=== PATIENT | female | born 1970 | race Caucasian/White ===

== ENCOUNTER 2018-09-07 00:34 | Outpatient (CLI) | payer BC, SELFPAY ==
--- NOTE | 2018-09-07 09:50 | DI.MAMMO_ITS ---
SYMPTOMS/DIAGNOSIS: SCREENING, Z12.31, PREVENTATIVE CARE, Z00.00 MAMMOGRAM: Mammograms were interpreted according to the usual protocol including computer analysis with CAD system, tomosynthesis and C view imaging. Comparison is made with exams from 2010 through 2016. Bilateral breast implants are again noted which appear intact. Implant displaced views were performed in addition to the routine views. The breasts are composed of heterogeneously dense fibroglandular tissue, breast density Category C. No suspicious masses or suspicious microcalcifications are seen. There has been no significant change. IMPRESSION: Category I C, negative mammogram. Yearly screening mammography is recommended. [facility] ASSESSMENT OF FINDINGS: Negative. Category 1. Patient will receive a letter notifying them of these results. Bi-RADS category C. The breasts are heterogeneously dense, which may obscure small masses.
== END 2018-09-07 00:54 ==
PROVIDERS: PCP Family Medicine; Visit Provider Family Medicine
DX: Z00.00 Encounter for general adult medical examination without abnormal findings (principal); Z12.31 Encounter for screening mammogram for malignant neoplasm of breast
CPT/HCPCS: 77063; 77067

== ENCOUNTER 2019-04-27 01:33 | Outpatient (CLI) | payer BC, SELFPAY ==
--- NOTE | 2019-04-27 09:10 | DI.COMBO_ITS ---
SYMPTOMS/DIAGNOSIS: DIAGNOSTIC, LT BREAST LUMP LEFT MAMMOGRAM AND LEFT BREAST ULTRASOUND: Mammograms were interpreted according to the usual protocol including computer analysis with CAD system, tomosynthesis and C view imaging. Comparison with prior examinations. Breast density C. No suspicious masses or microcalcifications are seen sonographically. A left breast implant is again seen and is unchanged. In the left breast in the area of palpable abnormality there is a 1.3 x 1.4 x 1 cm cyst. No internal blood flow is seen. There is debris seen within the dependent portion of the cyst. This may represent a prior infection or hemorrhage. No findings to suggest malignancy are seen. IMPRESSION: 1. 1.4 cm cyst in the left breast at 12:00 o'clock which corresponds to the palpable abnormality. Internal debris is noted. This may represent hemorrhagic or infection. No findings mammographically or sonographically at this time are seen to suggest malignancy. Category 2. The findings were discussed with the patient on the date of the examination. [facility] ASSESSMENT OF FINDINGS: Negative with benign findings. Category 2. Patient will receive a letter notifying them of these results. Bi-RADS category C. The breasts are heterogeneously dense, which may obscure small masses.
== END 2019-04-27 01:53 ==
PROVIDERS: PCP Family Medicine; Visit Provider Physician Assistant Medical
DX: N63.20 Unspecified lump in the left breast, unspecified quadrant (principal); N60.02 Solitary cyst of left breast
CPT/HCPCS: 76642; 77061; 77065; G0279

== ENCOUNTER 2019-11-29 15:31 | Outpatient (REF) | payer BC, SELFPAY ==
[2019-11-29 21:06] LABS: Abs Immature Grans 0.01 k/cumm (0.0-0.09); Absolute Basophil Count 0.04 k/cumm (0.0-0.2); Absolute Eosinophil Count 0.36 k/cumm (0.0-0.7); Absolute Lymphocyte Count 2.76 k/cumm (1.2-3.4); Absolute Monocyte Count 0.42 k/cumm (0.11-0.7); Basophils % 0.5; Eosinophils % 4.5; HCT 40.2 % (36.0-46.0); HGB 13.1 g/dL (12.0-15.5); Immature Grans % 0.1 %; Lymphocytes % 34.5; Mean Corp. HGB Concentration 32.6 g/dL (32.0-36.0); Mean Corpuscular Hemoglobin 31.8 pg (27.0-33.0); Mean Corpuscular Volume 97.6 fL (80-95); Mean Platelet Volume 8.9 fL (8.0-11.0); Monocytes % 5.3; Neutrophils % 55.1; Platelet Count 338 x1000/uL (130-400); RBC 4.12 m/cumm (4.00-5.20); RBC Distribution Width 13.8 % (11.7-14.6); White Blood Cell Count 7.99 k/cumm (4.4-10.8)
[2019-11-29 21:28] LABS: ALT 22 U/L (14-59); AST 18 U/L (15-37); Albumin 3.7 g/dL (3.4-5.0); Alkaline Phosphatase 67 U/L (46-116); Anion Gap 7.4 mmol/L (3-11); BUN 13 mg/dL (7-18); Bilirubin, Total 0.2 mg/dL (0.2-1.0); C-Reactive Protein 0.11 mg/dL (0.0-0.3); CO2 29.6 mmol/L (21.0-32.0); CREATININE 0.64 mg/dL (0.55-1.02); Calcium 8.6 mg/dL (8.5-10.1); Chloride 105 mmol/L (98-107); Glucose 78 mg/dL (74-106); Magnesium 1.6 mg/dL (1.8-2.4); Potassium 4.3 mmol/L (3.5-5.1); Sodium 142 mmol/L (136-145); TSH (W/Ref FT4) 1.09 uIU/mL (0.36-3.74); Total Protein 6.9 g/dL (6.4-8.2)
[2019-11-29 21:59] LABS: ESR 10 mm/hr (0-20)
[2019-12-03 10:46] LABS: HIV-1/2 Ag & Ab Screen Negative (Negative)
[2019-12-03 11:37] LABS: Hepatitis C Ab w Rflx HCV PCR Negative (Negative)
== END 2019-11-29 15:51 ==
LOC: NCHCN 15:31
PROVIDERS: PCP Family Medicine; Visit Provider Family Medicine
DX: Z00.00 Encounter for general adult medical examination without abnormal findings (principal); R53.83 Other fatigue; R51 Headache; R19.7 Diarrhea, unspecified; R61 Generalized hyperhidrosis; Z11.4 Encounter for screening for human immunodeficiency virus [HIV]; Z11.59 Encounter for screening for other viral diseases
CPT/HCPCS: 80053; 85652; 86803; 87389; 83735; 84443; 85025; 86140

== ENCOUNTER 2020-05-19 07:19 | Outpatient (CLI) | payer BC, SELFPAY ==
--- NOTE | 2020-05-19 08:00 | DI.MAMMO_ITS ---
EXAM: MG MAMMO SCREENING CLINICAL HISTORY: SCREENING, [facility],Z00.00 TECHNIQUE: Bilateral full field digital CC and MLO mammographic images were obtained with 3D tomosyn thesis and utilizing computer aided detection (CAD). COMPARISON: Available for comparison. FINDINGS: Masses/Architectural Distortion: None seen. Stable bilateral breast implants. Microcalcifications: No suspicious pleomorphic-type are seen. Skin Thickening/Nipple Retraction: None. IMPRESSION: 1. No significant interval change with no specific features of malignancy noted. 2. Unless there is more urgent need, screening mammography is recommended, as per [employer] [place] guidelines. BI-RADS Category 1 - Negative Breast Density - Category B - Scattered areas of fibroglandular density A negative radiographic report should not delay biopsy if a dominant or clinically suspicious mass is present. Up to ten percent of cancers are not identified on mammography. A negative report may reinforce clinical impression. Adenosis and dense breasts may obscure an underlying neoplasm. False positive reports average 6 to 10%. Patient will receive a letter notifying them of these results.
== END 2020-05-19 07:39 ==
PROVIDERS: PCP Family Medicine; Visit Provider Family Medicine
DX: Z12.31 Encounter for screening mammogram for malignant neoplasm of breast (principal); Z00.00 Encounter for general adult medical examination without abnormal findings; Z98.82 Breast implant status
CPT/HCPCS: 77063; 77067

== ENCOUNTER 2021-01-23 13:26 | Outpatient (CLI) | payer OTHER, SELFPAY ==
--- NOTE | 2021-01-23 | DI.RAD_ITS ---
EXAM: XR THORACIC SPINE COMPLETE CLINICAL HISTORY: THORACIC BACK PAIN, M54.9, FELL. TECHNIQUE: 2D digital imaging was performed. COMPARISON: No exams were available for comparison FINDINGS: BONES: There is no fracture or destructive lesion. The vertebral bodies and posterior elements are un remarkable. DISKS:There is a mild dextroscoliosis. Interverebral disc spaces are maintained. There are minimal endplate osteophytes in the lower thoracic region. SOFT TISSUE: Visualized lungs are clear. IMPRESSION: Mild scoliosis and mild degenerative changes. DATA REPOSITORY: RADIATION DOSE DELIVERED:
--- NOTE | 2021-01-23 | DI.RAD_ITS ---
EXAM: XR RIBS LT PA CHEST 3V CLINICAL HISTORY: THORACIC PAIN, FELL, M54.9. COMPARISON: CR CHEST 2 VIEWS PA,LAT from 01/10/2017 FINDINGS: LUNGS: Clear. No pneumothorax is seen. No infiltrate or effusion. HEART: Normal in size. BONES: No displaced rib fracture is seen. No bony destructive lesion is seen. The spine is grossly i ntact. IMPRESSION: Unremarkable chest and left ribs.
--- NOTE | 2021-01-23 | DI.RAD_ITS ---
EXAM: XR LUMBAR SPINE COMPLETE CLINICAL HISTORY: BACK PAIN, M54.5, FELL. TECHNIQUE: 2D digital imaging was performed. COMPARISON: CT ABD PELVIS WITH CONTRAST from 06/26/2014 CR ABD FLAT UPRIGHT PA CHEST from 06/26/2014 FINDINGS: Is no evidence of fracture, spondylolysis or spondylolisthesis. There is a [id number] levoscol iosis. There is mild narrowing of the L4-5 disc space and is severe narrowing of the L5-S1 disc spac e. Is calcification of the ileo transverse ligaments. The SI joints are unremarkable. The sacrum a ppears intact. IMPRESSION: Degenerative changes of the lower lumbar spine. No acute abnormality. DATA REPOSITORY: RADIATION DOSE DELIVERED:
== END 2021-01-23 13:46 ==
PROVIDERS: PCP Family Medicine; Visit Provider Physician Assistant
DX: M41.84 Other forms of scoliosis, thoracic region (principal); M47.814 Spondylosis without myelopathy or radiculopathy, thoracic region; M54.6 Pain in thoracic spine; M47.816 Spondylosis without myelopathy or radiculopathy, lumbar region
CPT/HCPCS: 71101; 72072; 72110

== ENCOUNTER 2021-07-01 02:22 | Outpatient (CLI) | payer OTHER, SELFPAY ==
--- NOTE | 2021-07-01 | DI.MAMMO_ITS ---
Exam(s) MG MAMMO SCREENING 60 MIN DUR EXAM: MG MAMMO SCREENING 60 MIN DUR CLINICAL HISTORY: SCREENING, IMPLANTS, [facility],Z00.00. TECHNIQUE: Bilateral full field digital CC and MLO mammographic images were obtained with 3D tomosyn thesis and utilizing computer aided detection (CAD). COMPARISON: Prior mammograms dating back to 2013, the most recent being April 2020.. This patient has retropectoral silicone implants. Both conventional implant displacement views were performed. FINDINGS: The fibroglandular tissue pattern is again noted be moderately dense, this decreasing the sensitivity of the mammogram for finding in underlying lesions. There are no CAD designations. In the posterior aspect of the right breast there is a 4 x 3 millimeter asymmetric density located ap proximately. 4.5 cm in from the nipple on the CC implant displacement view. Additional imaging rec ommended. In the opposite-left breast on the 3D MLO view there is round 2-3 millimeter nodule located 2 cm in f rom the nipple,. Ultrasound recommended There is no significant architectural distortion nor skin thickening-retraction. No malignant-appearing microcalcifications in either breast IMPRESSION: Dense bilateral fibroglandular tissue. Small nodules noted bilaterally. Bilateral breast ultrasound recommended. BI-RADS Category 0 - Assessment Incomplete: Need additional imaging evaluation Breast Density - Category C - Heterogeneously dense Breast density Category C or D implies that the patient has dense breast tissue. Dense breast tissue can make it harder to find cancer on a mammogram. Dense breast tissue is also associated with an incr eased risk of breast cancer. This information about the result of the mammogram report was provided to the patient to raise their awareness. Use this report when you speak with the patient about their risks for breast cancer, which includes their family history. At that time, you may recommend additional screening tests (Ultrasoun d or MRI) as these tests may add significant information. A negative radiographic report should not delay biopsy if a dominant or clinically suspicious mass is present. Up to ten percent of cancers are not identified on mammography. A negative report may reinforce clinical impression. Adenosis and dense breasts may obscure an underlying neoplasm. False positive reports average 6 to 10%. Patient will receive a letter notifying them of these results.
== END 2021-07-01 02:42 ==
PROVIDERS: PCP Family Medicine; Visit Provider Family Medicine
DX: Z00.00 Encounter for general adult medical examination without abnormal findings (principal); Z12.31 Encounter for screening mammogram for malignant neoplasm of breast; R92.8 Other abnormal and inconclusive findings on diagnostic imaging of breast; Z98.82 Breast implant status
CPT/HCPCS: 77063; 77067

== ENCOUNTER 2022-01-19 14:39 | Outpatient (REF) | payer OTHER, SELFPAY ==
[2022-01-19 14:51] LABS: HGB 12.3 g/dL (11.2-15.7); MCH 31.3 pg (27.0-33.0); MCHC 31.5 % (32.0-36.0); MCV 99.2 fL (80-95); MPV 9.3 fL (8.0-11.0); Platelet Count 267 10^3/uL (130-400); RBC 3.93 10^6/uL (3.93-5.22); RDW 13.4 % (11.7-14.6); RDW-SD 49.9 fL; WBC 8.33 10^3/uL (4.4-10.8)
[2022-01-19 15:20] LABS: ALT 39 U/L (14-59); AST 23 U/L (15-37); Albumin 3.6 g/dL (3.4-5.0); Alkaline Phosphatase 82 U/L (46-116); Anion Gap 7.2 mmol/L (3-11); BUN 16 mg/dL (7-18); Bilirubin, Total 0.2 mg/dL (0.2-1.0); CO2 27.8 mmol/L (21.0-32.0); CREATININE 0.7 mg/dL (0.55-1.02); Calcium 8.6 mg/dL (8.5-10.1); Calculated LDL 118 mg/dL (<100); Chloride 104 mmol/L (98-107); Cholesterol 182 mg/dL (<200); Glucose 83 mg/dL (74-106); HDL Cholesterol 39 mg/dL (40-60); Potassium 4.6 mmol/L (3.5-5.1); Sodium 139 mmol/L (136-145); TSH (W/Ref FT4) 0.69 uIU/mL (0.36-3.74); Total Protein 6.6 g/dL (6.4-8.2); Triglyceride 129 mg/dL (<150)
== END 2022-01-19 14:40 | disposition home or self-care (01) ==
LOC: NCHCN 14:39
PROVIDERS: PCP Family Medicine; Visit Provider Family Medicine
DX: E83.42 Hypomagnesemia (principal); R19.7 Diarrhea, unspecified; K58.9 Irritable bowel syndrome, unspecified; Z00.00 Encounter for general adult medical examination without abnormal findings
CPT/HCPCS: 80053; 80061; 85027; 84443

== ENCOUNTER 2023-01-21 16:27 | Outpatient (REF) | payer OTHER, SELFPAY ==
[2023-01-21 15:18] LABS: Anion Gap 4.9 mmol/L (3-11); BUN 13 mg/dL (7-18); CO2 29.1 mmol/L (21.0-32.0); CREATININE 0.8 mg/dL (0.55-1.02); Calcium 8.9 mg/dL (8.5-10.1); Chloride 104 mmol/L (98-107); Estimated GFR 89.71 (mL/min/1.73m2); Glucose 100 mg/dL (74-106); Potassium 4.3 mmol/L (3.5-5.1); Sodium 138 mmol/L (136-145)
== END 2023-01-21 16:28 | disposition home or self-care (01) ==
LOC: NCHCN 16:27
PROVIDERS: PCP Family Medicine; Visit Provider Family Medicine
DX: Z00.00 Encounter for general adult medical examination without abnormal findings (principal)
CPT/HCPCS: 80048

== ENCOUNTER 2023-03-04 00:19 | Outpatient (CLI) | payer OTHER, SELFPAY ==
--- NOTE | 2023-03-04 | DI.MAMMO_ITS ---
Exam(s) MG MAMMO SCREENING 60 MIN DUR EXAM: MG MAMMO SCREENING 60 MIN DUR CLINICAL HISTORY: SCREENING FOR BREAST CANCER Z12.31 HAS IMPLANTS TECHNIQUE: Bilateral full field digital CC and MLO mammographic images were obtained with 3D tomosyn thesis and utilizing computer aided detection (CAD). COMPARISON: Available for comparison. FINDINGS: Masses/Architectural Distortion: None seen. The patient has bilateral breast implants. Microcalcifications: No suspicious pleomorphic-type are seen. Skin Thickening/Nipple Retraction: None. IMPRESSION: 1. No significant interval change with no specific features of malignancy noted. 2. Unless there is more urgent need, screening mammography is recommended, as per [employer] guidelines. BI-RADS Category 1 - Negative Breast Density - Category C - Heterogeneously dense Breast density category C or D implies that the patient has dense breast tissue. Dense breast tissue is very common and is not abnormal but dense breast tissue can make it harder to find cancer on a ma mmogram. Also, dense breast tissue may increase their breast cancer risk. This information about the result of the mammogram report was provided to the patient to raise their awareness. Use this report when you speak with the patient about their risks for breast cancer, which includes their family hist ory. At that time, you may recommend for more screening tests (Ultrasound or MRI) as they might be us eful based on their risk. A negative radiographic report should not delay biopsy if a dominant or clinically suspicious mass is present. Up to ten percent of cancers are not identified on mammography. A negative report may reinforce clinical impression. Adenosis and dense breasts may obscure an underlying neoplasm. False positive reports average 6 to 10%. Patient will receive a letter notifying them of these results.
== END 2023-03-04 00:39 ==
LOC: DI 00:19
PROVIDERS: PCP Family Medicine; Visit Provider Family Medicine
DX: Z12.31 Encounter for screening mammogram for malignant neoplasm of breast (principal); Z98.82 Breast implant status
CPT/HCPCS: 77063; 77067

== ENCOUNTER 2025-02-08 13:17 | Outpatient (REF) | payer OTHER, SELFPAY ==
[2025-02-08 15:32] LABS: Calculated LDL 77 mg/dL (<100); Cholesterol 184 mg/dL (<200); HDL Cholesterol 81 mg/dL (>or=50); Triglyceride 132 mg/dL (<150)
[2025-02-08 23:04] LABS: HIV-1/2 Ag & Ab Screen Negative (Negative)
[2025-02-11 10:16] LABS: Hepatitis C Ab w Rflx HCV PCR Negative (Negative)
== END 2025-02-08 13:18 | disposition home or self-care (01) ==
LOC: NCHCN 13:17
PROVIDERS: PCP Family Medicine; Visit Provider Family Medicine
DX: Z00.00 Encounter for general adult medical examination without abnormal findings (principal)
CPT/HCPCS: 80061; 86803; 87389